=== PATIENT | female | born 1975 | race Caucasian/White ===

== ENCOUNTER 2019-02-27 10:33 | Emergency (ER) | payer MEDICAID ==
[~2019-02-27] VITALS: Ht 170.2 cm; Wt 148.8 kg
[2019-02-27 10:33] VITALS: BP_SYST 192
--- NOTE | 2019-02-27 10:33 | NUR ---
BROUGHT BACK TO BED #4 AND TRIAGED. REPORT GIVEN TO LEONARDO
--- NOTE | 2019-02-27 10:40 | NUR ---
Patient is awake, alert, and oriented x4. Patient states she was at work and started experiencing shortness of breath. She also reports that she has a history of anxiety and that today is her sister's birthday who 5 years ago of breast cancer.
--- NOTE | 2019-02-27 10:45 | NUR ---
ER Dr. Barba at bedside examining patient.
--- NOTE | 2019-02-27 11:20 | NUR ---
Dr. Barba at bedside speaking with patient.
[2019-02-27 11:39] VITALS: BP_SYST 139
--- NOTE | 2019-02-27 11:39 | NUR ---
Patient given written and verbal discharge instructions and verbalizes understanding. ER MD discussed with patient the results and treatment provided. Patient in stable condition. ID arm band removed. Patient educated on pain management and to follow up with PMD. Pain Scale 0/10. Opportunity for questions provided and answered. Medication side effect fact sheet provided.
== END 2019-02-27 11:39 | disposition home or self-care (01) ==
LOC: SED 10:33
DX: F41.9 Anxiety disorder, unspecified (principal); R06.4 Hyperventilation; R03.0 Elevated blood-pressure reading, without diagnosis of hypertension
CPT/HCPCS: 99283